=== PATIENT | male | born 1990 | race Caucasian/White ===

== ENCOUNTER 2023-05-17 14:01 | Inpatient (IN) | payer OTHER ==
[2023-05-17 15:29] VITALS: BMI 20.8
[2023-05-17] MEDS ORDERED: LOPERAMIDE HCL 2 MG CAPSULE PO PRN (17:33)
[2023-05-17] MEDS ORDERED: ONDANSETRON *ODT* 4 MG TABLET SL PRN (17:33)
[2023-05-17] MEDS ORDERED: hydrOXYzine PAMOATE 25 MG CAPSULE (FP) PO PRN (17:33)
[2023-05-17] MEDS ORDERED: MAGNESIUM HYDROX 2400MG/30ML ORAL SUSPENSION 30 ML CUP PO PRN (17:33)
[2023-05-17] MEDS ORDERED: ACETAMINOPHEN 325 MG TABLET (FP) PO PRN (17:33)
[2023-05-17] MEDS ORDERED: MAG HYDROX/AL HYDROX/SIMETH 30 ML UNIT-DOSE CUP PO PRN (17:33)
[2023-05-17] MEDS ORDERED: IBUPROFEN 600 MG TABLET (FP) PO PRN (17:33)
[2023-05-17] MEDS ORDERED: BENZOCAINE/MENTHOL (CHLORASEPTIC ) LOZENGE MM PRN (17:33)
[2023-05-17] MEDS ORDERED: POLYETHYLENE GLYCOL (HEALTHYLAX) 3350 17 GM PACKET PO PRN (17:33)
[2023-05-17] MEDS ORDERED: NALOXONE HCL 0.4 MG/ML VIAL IM PRN (17:33)
[2023-05-17] MEDS ORDERED: guaiFENesin 600 MG TABLET.ER (FP) PO PRN (17:33)
[2023-05-17] MEDS ORDERED: BENZONATATE 200 MG CAPSULE PO PRN (17:33)
[2023-05-17] MEDS ORDERED: NALOXONE HCL (KLOXXADO) 8 MG SPRAY NS PRN (17:33)
[2023-05-17] MEDS ORDERED: IBUPROFEN 400 MG TABLET (FP) PO PRN (17:33)
[2023-05-17] MEDS ORDERED: BISMUTH SUBSALICYLATE 524 MG/30 ML PO PRN (17:33)
[2023-05-17] MEDS ORDERED: DICYCLOMINE HCL 10 MG CAPSULE PO PRN (17:33)
[2023-05-17] MEDS ORDERED: METHOCARBAMOL 500 MG TABLET PO PRN (17:33)
[2023-05-17] MEDS ORDERED: P-EPHED 60MG/TRIPROLIDI 2.5MG TABLET PO PRN (17:33)
[2023-05-17] MEDS ORDERED: cloNIDine HCL 0.1 MG TABLET PO PRN (21:34)
[2023-05-17] MEDS ORDERED: methaDONE HCL 10 MG TABLET (FOR DETOX USE ONLY) PO ONE (21:34)
[2023-05-17] MEDS ORDERED: diazePAM 5 MG TABLET PO PRN (21:34)
[2023-05-17] MEDS ORDERED: MELATONIN 5 MG TABLETS PO SCH (22:00)
[2023-05-17] MEDS ORDERED: THIAMINE HCL 100 MG TABLET (FP) PO SCH (22:00)
[2023-05-17] MEDS: diazePAM 5 MG TABLET PO SCH (22:38)
[2023-05-18] MEDS: diazePAM 5 MG TABLET PO SCH ×2 (05:26→10:08)
[2023-05-18] MEDS: NICOTINE POLACRILEX 2 MG GUM BUC PRN ×2 (09:32→13:30)
[2023-05-18] MEDS ORDERED: PRENATAL VITAMINS W/ FOLIC ACID TABLET (FP) PO SCH (10:00)
[2023-05-18 11:07] LABS: HEMATOCRIT 42.3 % (35.4-49); HEMOGLOBIN 13.8 GM/dL (11.7-16.9); MCH 30.1 pg (25.7-33.7); MCHC 32.7 g/dl (32.0-35.9); MEAN PLT VOLUME 9.4 fl (7.5-11.1); PLATELET COUNT 257 10^3/uL (134-434); WHITE BLOOD COUNT 5.7 K/mm3 (4.0-10.0)
[2023-05-18 11:08] LABS: CHLORIDE 104 mmol/L (98-107); POTASSIUM 5.2 mmol/L (3.5-5.1); SODIUM 141 mmol/L (136-145)
[2023-05-18 11:12] LABS: BLOOD UREA NITROGEN 12.7 mg/dL (7-18)
[2023-05-18 11:14] LABS: ALBUMIN 3.4 g/dl (3.4-5.0); ANION GAP 4 MMOL/L (8-16); CALCIUM 9.5 mg/dL (8.5-10.1); CO2 33 mmol/L (21-32); GLUCOSE,RANDOM 91 mg/dL (74-106)
[2023-05-18 11:17] LABS: SGPT/ALT 76 U/L (13-61)
[2023-05-18 11:18] LABS: CREATININE 0.8 mg/dL (0.55-1.3); SGOT/AST 59 U/L (15-37)
[2023-05-18 11:19] LABS: BILIRUBIN,TOTAL < 0.1 mg/dL (0.2-1); TOT PROT 6.5 g/dl (6.4-8.2)
[2023-05-18 11:20] LABS: ALK PHOS 74 U/L (45-117)
[2023-05-18 16:41] VITALS: BP 149/71; PULSE 71; RESP 20; TEMP 97.1
[2023-05-19] MEDS ORDERED: diazePAM 5 MG TABLET PO SCH (06:00)
[2023-05-19] MEDS ORDERED: methaDONE HCL 10 MG TABLET (FOR DETOX USE ONLY) PO ONE (10:00)
[2023-05-20] MEDS ORDERED: diazePAM 5 MG TABLET PO SCH (06:00)
[2023-05-21] MEDS ORDERED: diazePAM 5 MG TABLET PO ONE (06:00)
[2023-05-21] MEDS ORDERED: methaDONE HCL 10 MG TABLET (FOR DETOX USE ONLY) PO ONE (10:00)
== END 2023-05-18 17:18 | disposition left against medical advice (07) | DRG 770 ==
LOC: YASAS 14:01 → Y3N 20:55
PROVIDERS: ADMIT Allergy & Immunology; ATTEND Surgery
PROC: HZ2ZZZZ Detoxification Services for Substance Abuse Treatment (ICD-10-PCS; principal; 2023-05-17)
DX: F11.23 Opioid dependence with withdrawal (principal); F13.230 Sedative, hypnotic or anxiolytic dependence with withdrawal, uncomplicated; F17.210 Nicotine dependence, cigarettes, uncomplicated; E87.5 Hyperkalemia; Z28.310 Unvaccinated for COVID-19
CPT/HCPCS: 36415; 80053; 85027; 86780; 87635